=== PATIENT | female | born 1975 | race Caucasian/White ===

== ENCOUNTER 2023-05-29 09:42 | Outpatient (OUT) | payer OTHER, SELFPAY ==
--- NOTE | 2023-05-29 09:52 | XR_ITS ---
[address] [address] Patient Name: TY WOMACK MRN: [id number] date: 1975 Sex: F Assigned Patient Location: [facility] Current Patient Location: [facility] Accession/Order Number: [id number] Exam Date: 05/29/2023 09:55 Report Date: 05/29/2023 11:31 At the request of: ANDREIA OGLESBY Procedure: XR lumbar spine 2-3V EXAM: XR lumbar spine 2-3V HISTORY: Lumbar Radiculopathy M54.16 COMPARISON: None. TECHNIQUE: 2 views Findings/impression: Status post posterior fusion of L4-L5. Intact hardware. Maintained vertebral body heights. Multilevel endplate degenerative changes and disc disease of L3-S1. No acute fracture or subluxation. Unremarkable soft tissues. Electronically authenticated by: GREG PARKS Date: 05/29/2023 11:31
== END 2023-05-29 09:43 | disposition home or self-care (01) ==
LOC: RAD 09:47
PROVIDERS: PCP Family Medicine; Visit Provider Family Medicine
DX: M54.16 Radiculopathy, lumbar region (principal)
CPT/HCPCS: 72100

== ENCOUNTER 2023-10-10 13:55 | Emergency (ER) | payer OTHER, SELFPAY ==
[2023-10-10 14:04] VITALS: BP 170/101; PULSE 78; RESP 16; TEMP 36.7; O2SAT 99; BMI 25.1
--- NOTE | 2023-10-10 14:38 | ED.BACK1 ---
HPI - Back Pain/Injury General Chief Complaint: Back Pain/Injury Stated Complaint: BACK PAIN, LOWER EXTREMITY PAIN Time Seen by Provider: 10/10/23 14:37 Source: patient Mode of arrival: walk-in Limitations: no limitations History of Present Illness HPI Narrative: This patient is here with continued pain in her right low back area. She fell about 3 weeks ago down some stairs. She seen her doctor twice and had medications administered in the office. She had back surgery by Dr. Judd 15 years ago and had been doing pretty good. She states that it radiates down from her right lumbosacral area down the back of her leg into her lower leg. She does not have a foot drop which she has experienced in the past. She does not have any bowel or bladder incontinence. Related Data Home Medications ?Medication ?Instructions ?Recorded ?Confirmed meloxicam 15 mg tablet 15 mg PO DAILY 10/10/23 10/10/23 Allergies Allergy/AdvReac Type Severity Reaction Status Date / Time No Known Drug Allergies Allergy Verified 10/10/23 14:09 Exam Narrative Exam Narrative: This very pleasant female moves about with some hesitation but does not appear to be in excruciating pain. In a sitting position or deep tendon reflexes were checked and confirmed. Her patellar reflexes are strong and equal bilaterally, Achilles jerk is strong and equal bilaterally. Extensor houses longus function is normal. She has a negative straight leg raising test but she does have discomfort on the right side. She has normal toe walking with no evidence of foot drop or muscle weakness. She has normal neurovascular examination to that right lower extremity. There is no bruises or contusions. Large surgical incision from her previous back surgery as noted appears unremarkable. Constitutional Vital Signs, click to edit/add: Last Vital Signs Temp 98.1 F 10/10/23 14:04 Pulse 78 10/10/23 14:04 Resp 16 10/10/23 14:04 BP 170/101 H 10/10/23 14:04 Pulse Ox 99 10/10/23 14:04 O2 Del Method Room Air 10/10/23 14:04 Course Vital Signs Vital signs: Vital Signs Temperature 98.1 F 10/10/23 14:04 Pulse Rate 78 10/10/23 14:04 Respiratory Rate 16 10/10/23 14:04 Blood Pressure 170/101 H 10/10/23 14:04 Pulse Oximetry 99 10/10/23 14:04 Oxygen Delivery Method Room Air 10/10/23 14:04 Temperature 98.1 F 10/10/23 14:04 Pulse Rate 78 10/10/23 14:04 Respiratory Rate 16 10/10/23 14:04 Blood Pressure 170/101 H 10/10/23 14:04 Pulse Oximetry 99 10/10/23 14:04 Oxygen Delivery Method Room Air 10/10/23 14:04 MDM - Back Pain/Injury MDM Narrative Medical decision making narrative: Since this patient had a traumatic fall I felt a CT scan could rule out any type of vertebral compression or other bony abnormality. Her examination is normal. Fortunately her CT scan does not show any bony fracture. Chronic changes are noted in the body of the report. She will be given a limited dose of analgesics. She probably should try some muscle relaxants and NSAIDs as advised by her primary care doctor. Discharge Plan Discharge Stand Alone Forms: Portal Instructions Chief Complaint: Back Pain/Injury Clinical Impression: Lumbar contusion Patient Disposition: Home, Self-Care Time of Disposition Decision: 16:24 Prescriptions / Home Meds: No Action meloxicam 15 mg tablet 15 mg PO DAILY Print Language: Tuvaluan Additional Instructions: May use [place] at nighttime try course of steroids as discussed Referrals: Sukumar Hayes MD [Primary Care Provider] - 1 week
--- NOTE | 2023-10-10 14:45 | CT_ITS ---
The [address] [address] Patient Name: TY WOMACK MRN: [id number] date: 1975 Sex: F Assigned Patient Location: ER Current Patient Location: ER Accession/Order Number: [id number] Exam Date: 10/10/2023 15:42 Report Date: 10/10/2023 16:06 At the request of: LANE OBRIEN Procedure: CT lumbar spine wo con EXAM: CT lumbar spine wo con HISTORY: Fall COMPARISON: None. TECHNIQUE: FINDINGS: The lung bases, left intradural structures and paraspinous soft tissues are normal. The alignment is normal. The patient is status post left laminectomy and posterior interbody fusion at L4-L5. The hardware is intact. No acute fracture. Discogenic endplate marrow change at L5-S1 L2-L3: No central or foraminal stenosis L3-L4: No central or foraminal stenosis at L4-L5: No central or foraminal stenosis present at the L5-S1: Annular disc bulge producing mild bilateral foraminal stenosis. CT/CT lumbar spine wo con IMPRESSION: 1. No acute fracture of the lumbar spine Electronically authenticated by: CHRIS CHI Date: 10/10/2023 16:06
--- OUTSIDE RECORDS SUMMARY | 2023-10-17 08:57 | XMS_ITS | CCD ---
Author Organization [facility] Care Team Providers Care Automobile Mechanic Motor Name Role Phone MARKER, DR KINGSTON Attending Unavailable HOY, DR BOSWELL Primary Care Unavailable MARKER, DR KINGSTON Admitting Unavailable MARKER, DR KINGSTON Consulting Unavailable HOY, DR BOSWELL Primary Care Unavailable REQUEST, DR ORR LISTED Admitting Unavaila ble REQUEST, DR ORR LISTED Consulting Unavaila ble REQUEST, NONE LISTED Attending Unavaila ble Problems Problem Classification Problem Date Documented Da te Episodic/Chronic Disorders of teeth and jaw (6 sources) Other specified disorders of teeth and supporting structures; Translations: [Periapical abscess without sinus] Onset: 06-22-2021 Episodic Fever of unknown origin (1 source) Fever, unspecified; Translations: [FEVER UNSPECIFIED] Onset: 06-24-2021 Episodic Encounters Encounter Date Encounter Type Care Provider Facility Start: 06-22-2021 End: 06-23-[address] THEE MILLER Facility:[facility] Start: 10-04-2020 End: 10-04-[address] ANDREIA OGLESBY Facility:[facility] Payers Date Payer Category Payer Unknown [id number] .[id number] 1959 Private Health Insurance [id number] 1959 Self-pay Unknown [id number] .[id number] Summary Purpose Family History No Family History Records Found Advance Directives No Advanced Directives Records Found Additional Source Comments INFORMATION SOURCE (unrecogn ized section and content) DATE CREATED AUTHOR 06/25/2021 Susan marquez FOR RECORDS PERTAINING TO PATIENTS WHO ARE OR HAVE BEEN ENROLLED IN A CHEMICAL DEPENDENCY/SUBSTANCEABUSE PROGRAM, SOME INFORMATION MAY BE OMITTED. This clinical summary was aggregated from multiple sources. Caution should be exercised in using it in the provision of clinical care. This summary normalizes information from multiple sources, and as a consequence, information in this document may materially change the coding, format and clinical context of patient data. In addition, data may be omitted in some cases. CLINICAL DECISIONS SHOULD BE BASED ON THE PRIMARY CLINICAL RECORDS. [employer] [facility]. provides no warranty or guarantee of the accuracy or completeness of information in this document.
== END 2023-10-10 16:36 | disposition home or self-care (01) ==
LOC: ER 10-17 08:36
PROVIDERS: Emergency Provider Emergency Medicine Emergency Medical Services; PCP Family Medicine
DX: S30.0XXA Contusion of lower back and pelvis, initial encounter (principal); W10.9XXA Fall (on) (from) unspecified stairs and steps, initial encounter
CPT/HCPCS: 72131; 99284

== ENCOUNTER 2023-10-22 07:20 | Outpatient (OUT) | payer OTHER, SELFPAY ==
--- OUTSIDE RECORDS SUMMARY | 2023-10-22 07:23 | XMS_ITS | CCD ---
Author Organization [facility] Care Team Providers Care Electrician Third Name Role Phone MARKER, DR KINGSTON Attending [...] Facility:[facility] Payers Date Payer Category Payer Unknown [id number] .[id number] 1959 Private Health Insurance [id number] 1959 Self-pay Unknown [id number] .[id number] Summary Purpose Family History No Family History [...] BE BASED ON THE PRIMARY CLINICAL RECORDS. [employer] [facility]. provides no warranty or guarantee of the accuracy or completeness of information in this document.
--- NOTE | 2023-10-22 07:24 | MR_ITS ---
The [address] [address] Patient Name: TY WOMACK MRN: [id number] date: 1975 Sex: F Assigned Patient Location: MRI Current Patient Location: MRI Accession/Order Number: [id number] Exam Date: 10/22/2023 07:40 Report Date: 10/22/2023 10:27 At the request of: ANDREIA OGLESBY Procedure: MR lumbar spine wo con EXAMINATION: MR lumbar spine wo con HISTORY: Lumbar Radiculopathy, M54.16 ; chronic low back pain, chronic right leg pain and weakness, COMPARISON: No relevant comparison available. TECHNIQUE: A variety of imaging planes and parameters were utilized for visualization of suspected pathology. FINDINGS: For the purposes of numbering, sagittal T2 image # 8 extends from the T11 vertebral body superiorly to the S2 level inferiorly. PARASPINAL AREA: Normal with no visible mass. BONES: Mechanical fusion L4-L5 via bilateral pedicle screws and rods. L4 left laminectomy. No bone fracture, lesion, or spondylolisthesis. CORD/CAUDA EQUINA: Within the proximal cauda equina posterior to L1 is an approximately 10 x 6 x 4 mm mixed soft tissue and fluid signal lesion displacing adjacent descending nerve roots. DISC LEVELS: 12-L1: No significant disc/facet abnormality, spinal stenosis, or foraminal stenosis. L1-L2: No significant disc/facet abnormality, spinal stenosis, or foraminal stenosis. L2-L3: No significant disc/facet abnormality, spinal stenosis, or foraminal stenosis. L3-L4: No significant disc/facet abnormality, spinal stenosis, or foraminal stenosis. L4-L5: Marked narrowing without appreciable disc bulging. No significant central canal or foraminal stenosis. L4 left laminectomy. Mechanical fusion L4-L5. L5-S1: Mild central canal and bilateral foramen narrowing. Mild diffuse disc bulging and mild disc at reduction. No significant facet arthropathy. MR/MR lumbar spine wo con IMPRESSION: 1. Nonspecific 10 x 6 x 4 mm lesion within the central canal posterior to L1 of uncertain etiology. MRI lumbar spine without and with IV contrast with thin sections through this level is recommended for further evaluation. While this displaces adjacent nerve roots, it does not cause significant mass effect within the central canal. 2. Mechanical fusion L4-L5 and L4 left laminectomy. No significant central canal or foraminal stenosis. 3. L5-S1 mild to moderate degenerative disc disease causing mild foraminal narrowing bilaterally. Electronically authenticated by: STEPHENIE DENG Date: 10/22/2023 10:27
== END 2023-10-22 07:21 | disposition home or self-care (01) ==
LOC: MRI 07:21
PROVIDERS: PCP Family Medicine; Visit Provider Family Medicine
DX: M54.16 Radiculopathy, lumbar region (principal); M51.36 Other intervertebral disc degeneration, lumbar region
CPT/HCPCS: 72148

== ENCOUNTER 2023-10-30 06:38 | Outpatient (OUT) | payer OTHER, SELFPAY ==
--- OUTSIDE RECORDS SUMMARY | 2023-10-30 06:40 | XMS_ITS | CCD ---
Author Organization [facility] Care Team Providers Care Director Cloud Transformation Name Role Phone MARKER, DR KINGSTON Attending [...] Facility:[facility] Payers Date Payer Category Payer Unknown [id number] .[id number] 1959 Private Health Insurance [id number] 1959 Self-pay Unknown [id number] .[id number] Summary Purpose Family History No Family History [...] BE BASED ON THE PRIMARY CLINICAL RECORDS. [employer] [facility]. provides no warranty or guarantee of the accuracy or completeness of information in this document.
--- NOTE | 2023-10-30 06:43 | MR_ITS ---
The [address] [address] Patient Name: TY WOMACK MRN: [id number] date: 1975 Sex: F Assigned Patient Location: MRI Current Patient Location: Accession/Order Number: [id number] Exam Date: 10/30/2023 06:50 Report Date: 10/31/2023 08:13 At the request of: ANDREIA OGLESBY Procedure: MR lumbar spine wo/w con MR lumbar spine wo/w con, 10/30/2023 6:50 AM EDT INDICATION: Complete Lesion Of Unspecified Level Of Lumbar Spinal Cord COMPARISON: Prior MRI of lumbar spine dated 10/22/2023 TECHNIQUE: Multiplanar, multisequential MRI images of lumbar spine were obtained without and with contrast. FINDINGS: For dictation purposes, the lowest complete disc space in the lumbar spine considered as L5-S1. There is status post bilateral fusion of L4-L5 and L5-S1 causing magnetic susceptibility artifact that decreases the sensitivity of this study. Please note that MRI is not sensitive for evaluation of the hardware. There is loss of normal physiologic lumbar lordosis. The vertebral height is preserved. The conus medullaris is at the level of L1. No signal abnormality within the visualized spinal cord is noted. 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 No neural foraminal narrowing or canal stenoses at the level of T12-L1 and L1-L2 is noted. At the level of L2-L3, there are disc bulge with mild bilateral neuroforaminal narrowing and mild canal stenosis. At the level of L3-4, there are disc bulge with mild left neuroforaminal narrowing and mild canal stenosis. At the level of L4-5, there are disc bulge with no neuroforaminal narrowing and no canal stenosis. There is status post left hemilaminectomy at this level. At the level of L5-S1, there are disc bulge with moderate bilateral neuroforaminal narrowing and mild canal stenosis. Bilateral S1 nerve roots are in close contact with the disc bulge in the lateral recesses. The paraspinal muscles are unremarkable. No other abnormal enhancing lesion is noted. MR/MR lumbar spine wo/w con IMPRESSION: Mild degenerative changes of lumbar spine in particular at L5-S1. 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 Electronically authenticated by: GERRI RICE Date: 10/31/2023 08:13
== END 2023-10-30 06:39 | disposition home or self-care (01) ==
LOC: MRI 06:38
PROVIDERS: PCP Family Medicine; Visit Provider Family Medicine
DX: S34.119A Complete lesion of unspecified level of lumbar spinal cord, initial encounter (principal)
CPT/HCPCS: 72158; A9575

== ENCOUNTER 2023-11-02 11:46 | Outpatient (OUT) | payer OTHER, SELFPAY ==
--- NOTE | 2023-11-02 | XR_ITS ---
The [place] [id number] Patient Name: TY WOMACK MRN: [id number] date: 1975 Sex: F Assigned Patient Location: Current Patient Location: Accession/Order Number: [id number] Exam Date: 11/02/2023 12:10 Report Date: 11/04/2023 05:30 At the request of: VIRGEN VELEZ Procedure: XR lumbar spine min 4V EXAMINATION: XR lumbar spine min 4V HISTORY: LUMBAR SPINE PAIN COMPARISON: CT lumbar spine 10/10/2023 FINDINGS: BONES: Posterior mechanical fusion L4-L5 via bilateral pedicle screws and rods; no appreciable hardware fracture or loosening. Normal height and alignment of vertebral bodies; no change during flexion and extension. Multilevel mild degenerative facet arthropathy. Mild right convex curvature of thoracolumbar spine. DISC SPACES: Moderate narrowing L4-L5, L5-S1. PARASPINOUS: Negative. No paraspinous abnormality is seen. OTHER: Negative. XR/XR lumbar spine min 4V IMPRESSION: 1. Stable surgical changes without evidence of hardware failure or change in alignment. 2. Moderate degenerative disc disease of lower lumbar spine; grossly stable. Electronically authenticated by: STEPHENIE DENG Date: 11/04/2023 05:30
== END 2023-11-02 11:47 | disposition home or self-care (01) ==
LOC: EC 11:46
PROVIDERS: PCP Family Medicine; Visit Provider Orthopaedic Surgery Orthopaedic Surgery of the Spine
DX: M54.50 Low back pain, unspecified (principal); M51.36 Other intervertebral disc degeneration, lumbar region
CPT/HCPCS: 72110

== ENCOUNTER 2023-11-14 11:03 | Outpatient (OUT) | payer OTHER, SELFPAY ==
--- NOTE | 2023-11-14 11:27 | P.CN_ITS ---
Consult Note: HPI Data of Consult Patient: new to practice Requesting Physician: Milady Stevenson NP Primary Care Provider: Sukumar Hayes MD Consult Narrative Reason for consult: chronic low back pain with right sided radiculopathy Narrative: Arin smith pleasant 48 year old female presents for evaluation and management of chronic low back pain with right sided radiculopathy. Hx of lumbar fusion at L4-5 and lumbar discectomy. Patient recently evaluated by Dr Humphrey and patient would like to try injection therapy prior to additional surgical intervention. Pain today 4/10 constant sharp burning in low back radiating into right leg and foot/toes. Pain increased with all activity, stairs, bending, twisting. no loss of bowel or bladder. Finds mild benefit to motrin, mobic, tramadol. engaged in HEP greater than 6 weeks without benefit. Recent lumbar xray and MRI below, consistent with stenosis and degnerative changes. cc:: CC: Milady Stevenson NP Review of Systems ROS Status of ROS 10 or more systems reviewed and unremark able except as noted in history and below Musculoskeletal Reports: back pain and extremity pain Meds Home Medications and Allergies Home Medications ?Medication ?Instructions ?Recorded ?Confirmed ?Type meloxicam 15 mg tablet 15 mg PO DAILY 10/10/23 10/10/23 History Allergies Allergy/AdvReac Type Severity Reaction Status Date / Time No Known Drug Allergies Allergy Verified 10/10/23 14:09 Exam Constitutional Documenting provider has reviewed patient's vital signs: yes Common normals: no apparent distress, oriented x3, healthy appearing, alert and well nourished General appearance: cooperative HENMT Common normals: normocephalic, hearing grossly normal bilaterally and moist oral mucous membranes Head and scalp: normocephalic Eye Common normals: PERRL Pupil: PERRL Neck & C-Spine Common normals: full ROM General: normal visual inspection Chest Common normals: inspection of chest normal Respiratory Common normals: normal respiratory effort, no retractions and no use of accessory muscles Back & Pelvis Lumbar spine/lower back: pain with ROM and straight leg raise positive right Sacroiliac joints: SI joint(s) abnormal (right positive ashlee, fadir, thigh thrust) Other: decreased sensation to right L5,S1 dermatomal pattern strength 4/5 in BLE neurogenic claudication in BLE with activity, stairs, ambulation Extremity Common normals: normal to inspection and full ROM Neuro Common normals: oriented x3, CN's II-XII intact bilaterally, moves all extremities, no focal motor deficits, no sensory deficits noted and deep tendon reflexes 2+ bilaterally Sensorium/orientation: alert Gait (neuro): antalgic Motor exam: no movement abnormalities noted and strength abnormal Psych Common normals: mental status grossly normal, thought process normal, cooperative, affect normal, speech normal and activity/motor behavior normal Speech: normal speech Thought process: normal thought process Results Imaging Lumbar MRI: Radiologist's impression: For dictation purposes, the lowest complete disc space in the lumbar spine considered as L5-S1. There is status post bilateral fusion of L4-L5 and L5-S1 causing magnetic susceptibility artifact that decreases the sensitivity of this study. Please note that MRI is not sensitive for evaluation of the hardware. There is loss of normal physiologic lumbar lordosis. The vertebral height is preserved. The conus medullaris is at the level of L1. No signal abnormality within the visualized spinal cord is noted. 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 No neural foraminal narrowing or canal stenoses at the level of T12-L1 and L1-L2 is noted. At the level of L2-L3, there are disc bulge with mild bilateral neuroforaminal narrowing and mild canal stenosis. At the level of L3-4, there are disc bulge with mild left neuroforaminal narrowing and mild canal stenosis. At the level of L4-5, there are disc bulge with no neuroforaminal narrowing and no canal stenosis. There is status post left hemilaminectomy at this level. At the level of L5-S1, there are disc bulge with moderate bilateral neuroforaminal narrowing and mild canal stenosis. Bilateral S1 nerve roots are in close contact with the disc bulge in the lateral recesses. The paraspinal muscles are unremarkable. No other abnormal enhancing lesion is noted. Lumbar xray: Radiologist's impression: BONES: Posterior mechanical fusion L4-L5 via bilateral pedicle screws and rods; no appreciable hardware fracture or loosening. Normal height and alignment of vertebral bodies; no change during flexion and extension. Multilevel mild degenerative facet arthropathy. Mild right convex curvature of thoracolumbar spine. DISC SPACES: Moderate narrowing L4-L5, L5-S1. PARASPINOUS: Negative. No paraspinous abnormality is seen. OTHER: Negative. Additional Findings Additional findings: If on a controlled substance or opioids, I have checked an [place] report on this patient and there are no aberrancies noted in the prescribing history.??If on a controlled substance or opioid a drug screen was completed and reviewed within the last year, and if there has not been a drug screen completed we ordered one today to monitor higher risk, state monitored pain medication use. As part of providing excellent, safe, comprehensive care, the following was completed at our patient's visit: 1. A medication reconciliation and review to ensure accurate knowledge of current/active medications, including asking our patients to inform us about any [id number] medications or herbal remedies/nutritional supplements/altern ative remedies. 2. A review to specifically ensure our patients have had annual screening for screening for depression, screening for tobacco use, and screening for unhealthy alcohol use. For concerning screenings had a discussion with the patient, provided patient education, and recommended follow-up with primary care provider when appropriate. If patient noted with a risk of falling, they received education on strength, gait, and balance training to prevent future risk of falling. Assessment and Plan Assessment and Plan (1) Lumbar stenosis with neurogenic claudication: (2) Sacroiliitis: (3) S/P lumbar fusion: Plan The patient has had over 3 months of moderate to severe low back, right leg, and right SIJ pain with functional impairment and inadequate response to conservative care including NSAIDS (unless there are contraindication such as concurrent blood thinners), multiple oral or topical pain medications, and home exercise program/physical therapy.? Patient has completed >6 weeks of guided home exercise program and/or formal physical therapy program without relief of their symptoms.? I have reviewed the imaging of the lumbosacral spine and no red flags were identified.? The imaging reveals radiographic findings consistent with lumbar stenosis. We discussed the risks and benefits of the procedure with the patient, and we are NOT planning on using sedation as outlined in the guidelines from Medicare unless there is a documented reason that sedation would be strongly rec ommended.?? The procedure will be completed with fluoroscopic guidance.? bilateral L5-S1 TFESI under fluoroscopy right SIJ injection continue HEP as tolerated continue medications as tolerated f/u 2 weeks after completion of injections
== END 2023-11-14 11:04 | disposition home or self-care (01) ==
PROVIDERS: PCP Family Medicine; Visit Provider Nurse Practitioner
DX: M48.062 Spinal stenosis, lumbar region with neurogenic claudication (principal); M46.1 Sacroiliitis, not elsewhere classified; Z98.890 Other specified postprocedural states
CPT/HCPCS: G0463

== ENCOUNTER 2023-12-03 09:03 | Day surgery (SDC) | payer OTHER, SELFPAY ==
[2023-12-03 09:40] VITALS: BP 149/96; PULSE 70; TEMP 36.3; O2SAT 100
[2023-12-03 10:01] VITALS: BP 153/90; BP 170/94; PULSE 66; PULSE 70; O2SAT 98
[2023-12-03] MEDS: 0.9 % SODIUM CHLORIDE 10 ML SYRINGE - SALINE FLUSH INJ (10:03)
--- NOTE | 2023-12-03 10:03 | W.PM.PROCNOT ---
Date of procedure: 12/03/23 Pre-op diagnosis: Lumbar stenosis with neurogenic claudication Post-op diagnosis: same as pre-op Procedure: Procedure: Bilateral L5-S1 transforaminal epidural steroid injection Medications: Bupivacaine 0.25% 2cc, lidocaine 2% 1cc, kenalog 80mg The patient was seen and examined in the preoperative holding area.? Informed consent was obtained and placed on the chart.? Patient was brought to the medical procedure unit and placed in the prone position where a timeout was completed verifying the correct patient, procedure site, position, and planned special equipment using sterile aseptic technique.? Under direct fluoroscopic visualization a 25-gauge Quincke tipped spinal needle was advanced at level left L5-S1 to the designated neural foramen where contrast dye was injected to show adequate spread.? There was no evidence of vascular or adverse uptake.? Epidural spread was appreciated.? The above-mentioned injectate was then placed in a 1.5 mL aliquot preceded by negative aspiration.? The needle was removed. The same procedure, at the same level, was completed on the opposite side. ? Patient was taken to the postprocedural recovery area and monitored for an appropriate length of time before found suitable for discharge in the accompaniment of a responsible adult. Anesthesia: Local Surgeon: Marcos Huffman Pathology: none sent Condition: stable Disposition: no change
[2023-12-03] MEDS: LIDOCAINE HCL 2% PF 100 MG/5 ML VIAL 2.5 ML INJ (10:04)
[2023-12-03] MEDS: IOHEXOL 240 MG/ML - 10 ML VIAL 12 MG INJ (10:04)
[2023-12-03] MEDS: TRIAMCINOLONE ACETONIDE 40 MG/ML VIAL 80 MG INJ (10:04)
[2023-12-03] MEDS: BUPIVACAINE HCL 0.25% PF 25 MG/10 ML VIAL INJ (10:04)
--- NOTE | 2023-12-03 11:10 | PC.NURSE ---
Upon arrival to PACU pt reported weakness to left leg, pt was unable to ambulate without assistance. She was placed in a wheelchair. Pt was observed and after 2 attempts at standing with assistance pt was able to ambulate without assistance.
== END 2023-12-03 11:07 | disposition home or self-care (01) ==
PROVIDERS: PCP Family Medicine; Visit Provider Anesthesiology
DX: M48.062 Spinal stenosis, lumbar region with neurogenic claudication (principal)
CPT/HCPCS: 64483; Q9966

== ENCOUNTER 2023-12-13 13:06 | Outpatient (OUT) | payer OTHER, SELFPAY ==
--- NOTE | 2023-12-13 13:26 | P.CN_ITS ---
Consult Note: HPI Data of Consult Patient: known to practice within the last 3 years Requesting Physician: Milady Stevenson NP Primary Care Provider: Sukumar Hayes MD Consult Narrative Reason for consult: chronic low back pain with right sided radiculopathy Narrative: Arin Montenegro a pleasant 48 year old female presents for evaluation and man agement of chronic low back pain with right sided radiculopathy. Hx of lumbar fusion at L4-5 and lumbar discectomy. Patient recently evaluated by Dr Humphrey and patient would like to try injection therapy prior to additional surgical intervention. Pain today 4/10 constant sharp burning in low back radiating into right leg and foot/toes. Pain increased with all activity, stairs, bending, twisting. no loss of bowel or bladder. Finds mild benefit to motrin, mobic, tramadol. engaged in HEP greater than 6 weeks without benefit. Recent lumbar xray and MRI below, consistent with stenosis and degnerative changes. Recent bilateral L5-S1 TFESI providing significant improvement in radicular pain. Pain today 0/10. Pain increasing in right SIJ to 6/10. cc:: CC: Milady Stevenson NP Review of Systems ROS Status of ROS 10 or more systems reviewed and unremark able except as noted in history and below Musculoskeletal Reports: joint pain PFSH PFSH Medical History (Updated 11/27/23 @ 10:12 by Chantelle Jamil) Low back pain ?M54.50 - Low back pain, unspecified (ICD-10) Surgical History History of lumbar fusion ?Z98.1 - Arthrodesis status (ICD-10) H/O lumbar discectomy ?Z98.890 - Other specified postprocedural states (ICD-10) Meds Home Medications and Allergies Home Medications ?Medication ?Instructions ?Recorded ?Confirmed ?Type meloxicam 15 mg tablet 15 mg PO DAILY 10/10/23 12/03/23 History Allergies Allergy/AdvReac Type Severity Reaction Status Date / Time No Known Drug Allergies Allergy Verified 12/03/23 09:35 Exam Constitutional Documenting provider has reviewed patient's vital signs: yes Common normals: no apparent distress, oriented x3, healthy appearing, alert and well nourished General appearance: cooperative HENMT Common normals: normocephalic, hearing grossly normal bilaterally and moist oral mucous membranes Head and scalp: normocephalic Eye Common normals: PERRL Pupil: PERRL Neck & C-Spine Common normals: full ROM General: normal visual inspection Chest Common normals: inspection of chest normal Respiratory Common normals: normal respiratory effort, no retractions and no use of accessory muscles Back & Pelvis Lumbar spine/lower back: normal to inspection, pain with ROM and straight leg ra ise negative bilaterally Sacroiliac joints: SI joint(s) abnormal Other: strength 5/5 in BLE sensation intact BLE right positive ashlee(patricks), gaenslens, thigh thrust, compression test neurogenic claudication in BLE with activity, stairs, ambulation Extremity Common normals: normal to inspection and full ROM Neuro Common normals: oriented x3, CN's II-XII intact bilaterally, moves all extremities, no focal motor deficits, no sensory deficits noted and deep tendon reflexes 2+ bilaterally Sensorium/orientation: alert Gait (neuro): antalgic Motor exam: strength 5/5 throughout and no movement abnormalities noted Psych Common normals: mental status grossly normal, thought process normal, cooperative, affect normal, speech normal and activity/motor behavior normal Speech: normal speech Thought process: normal thought process Results Additional Findings Additional findings: If on a controlled substance or opioids, I have checked an OARRS report on this patient and there are no aberrancies noted in the prescribing history.??If on a controlled substance or opioid a drug screen was completed and reviewed within the last year, and if there has not been a drug screen completed we ordered one today to monitor higher risk, state monitored pain medication use. As part of providing excellent, safe, comprehensive care, the following was completed at our patient's visit: 1. A medication reconciliation and review to ensure accurate knowledge of current/active medications, including asking our patients to inform us about any pfwg-uqg-roeyxng medications or herbal remedies/nutritional supplements/alternative remedies. 2. A review to specifically ensure our patients have had annual screening for screening for depression, screening for tobacco use, and screening for unhealthy alcohol use. For concerning screenings had a discussion with the patient, provided patient education, and recommended follow-up with primary care provider when appropriate. If patient noted with a risk of falling, they received education on strength, gait, and balance training to prevent future risk of falling. Assessment and Plan Assessment and Plan (1) Sacroiliitis: (2) S/P lumbar fusion: (3) Lumbar stenosis with neurogenic claudication: Plan right SIJ injection under fluoroscopy limit NSAIDs, elevated asymptomatic HTN. will f/u with pcp f/u 2 weeks after SIJ injection
== END 2023-12-13 13:07 | disposition home or self-care (01) ==
LOC: PM 13:06
PROVIDERS: PCP Family Medicine; Visit Provider Nurse Practitioner
DX: M46 Other inflammatory spondylopathies (principal); M43.27 Fusion of spine, lumbosacral region; M48.062 Spinal stenosis, lumbar region with neurogenic claudication
CPT/HCPCS: G0463

== ENCOUNTER 2024-02-04 09:25 | Day surgery (SDC) | payer OTHER, SELFPAY ==
--- OUTSIDE RECORDS SUMMARY | 2024-02-04 09:46 | XMS_ITS | CCD ---
Author Organization [facility] Care Team Providers Care Client Director Name Role Phone MARKER, DR KINGSTON Attending Unavailable HOY, DR BOSWELL Primary Care Unavailable MARKER, DR KINGSTON Admitting Unavailable MARKER, DR KINGSTON Consulting Unavailable HOY, DR BOSWELL Primary Care Unavailable REQUEST, DR ORR LISTED Admitting Unavaila ble REQUEST, DR ORR LISTED Consulting Unavaila ble REQUEST, DR ORR LISTED Attending Unavaila ble Nathanael ROCK, Marcos Sanchez Attending Unavailable Problems Problem Classification Problem Date Documented Da te Episodic/Chronic Disorders of teeth and jaw (6 sources) Other specified disorders of teeth and supporting structures; Translations: [Periapical abscess without sinus] Onset: 06-22-2021 Episodic Fever of unknown origin (1 source) Fever, unspecified; Translations: [FEVER UNSPECIFIED] Onset: 06-24-2021 Episodic Encounters Encounter Date Encounter Type Care Provider Facility Start: 12-03-2023 End: 12-04-2023 ambulatory [facility] Start: 06-22-2021 End: 06-23-[address] THEE MILLER Facility: Start: 10-04-2020 End: 10-04-[address] ANDREIA OGLESBY Facility:[facility] Payers Date Payer Category Payer Private Health Insurance 1975 Unknown [id number] 08.31.83 [id number] 1975 Unknown [id number] 1959 Private Health Insurance [id number] 1959 Self-pay Unknown [id number] 08.31.83 [id number] Summary Purpose Family History No Family History Records FoundNo Family History Records Found Advance Directives No Advanced Directives Records FoundNo Advanced Directives Records Found Additional Source Comments INFORMATION SOURCE (unrecogn ized section and content) DATE CREATED AUTHOR 06/25/2021 [facility] DATE CREATED AUTHOR AUTHOR'Haley CARVAJAL 12/09/2023 [facility] FOR RECORDS PERTAINING TO PATIENTS WHO ARE [...] BE BASED ON THE PRIMARY CLINICAL RECORDS. [employer] [facility]. provides no warranty or guarantee of the accuracy or completeness of information in this document.
[2024-02-04 10:17] VITALS: BP 155/97; PULSE 79; TEMP 36.3; O2SAT 100
[2024-02-04 10:51] VITALS: BP 148/95; BP 164/79; PULSE 73; PULSE 76; O2SAT 100; O2SAT 98
--- NOTE | 2024-02-04 10:52 | W.PM.PROCNOT ---
Date of procedure: 02/04/24 Pre-op diagnosis: Pain due to right sacroiliiitis Post-op diagnosis: same as pre-op Procedure: Procedure: Right sacroiliac joint injection Medications: Bupivacaine 0.25% 3cc, kenalog 40mg PROCEDURE: After informed consent was obtained, the patient brought to the OR and placed in the prone position. The skin overlying the area was prepped and draped in sterile fashion ?using alcohol, after which a 25 gauge needle was used to access the nerve innervating the right sacroiliac joint under fluoroscopic guidance. Omnipaque contrast dye was injected to show absence of vascular or spinal canal uptake. After encountering the same we instilled 4 mL of solution. ?Postoperatively, needles were removed. The patient tolerated the procedure well and was ?transferred to recovery area in stable condition, to be discharged home after meeting ?criteria. Follow up as per the treatment plan. Anesthesia: Local Surgeon: Marcos Huffman Pathology: none sent Condition: stable Disposition: no change
[2024-02-04] MEDS: TRIAMCINOLONE ACETONIDE 40 MG/ML VIAL INJ (10:53)
[2024-02-04] MEDS: IOHEXOL 240 MG/ML - 10 ML VIAL 24 MG INJ (10:53)
[2024-02-04] MEDS: BUPIVACAINE HCL 0.25% PF 25 MG/10 ML VIAL 2 ML INJ (10:53)
[2024-02-04] MEDS: LIDOCAINE HCL 2% 400 MG/20 ML MDV INJ (10:53)
== END 2024-02-04 10:55 | disposition home or self-care (01) ==
PROVIDERS: PCP Family Medicine; Visit Provider Anesthesiology
DX: M46.1 Sacroiliitis, not elsewhere classified (principal); R52 Pain, unspecified
CPT/HCPCS: 27096; J0665; J3301; Q9966

== ENCOUNTER 2024-02-07 13:18 | Outpatient (OUT) | payer OTHER, SELFPAY ==
--- OUTSIDE RECORDS SUMMARY | 2024-02-07 13:22 | XMS_ITS | CCD ---
Author Organization [facility] Care Team Providers Care Pole Shaver Helper Name Role Phone MARKER, DR KINGSTON Attending [...] End: 12-04-2023 ambulatory [facility] Start: 06-22-2021 End: 06-23-[address] THEE MILLER Facility: Start: 10-04-2020 End: 10-04-[address] ANDREIA OGLESBY Facility:[facility] Payers Date Payer Category Payer Private Health Insurance 1975 Unknown [id number] 08.31.83 [id number] 1975 Unknown [id number] 1959 Private Health Insurance [id number] 1959 Self-pay Unknown [id number] 08.31.83 [id number] Summary Purpose Family History No Family History Records FoundNo Family History Records Found Advance Directives No Advanced Directives Records FoundNo Advanced Directives Records Found Additional Source Comments INFORMATION SOURCE (unrecogn ized section and content) DATE CREATED AUTHOR 06/25/2021 [facility] DATE CREATED AUTHOR AUTHOR'Haley CARVAJAL 12/09/2023 [facility] FOR RECORDS PERTAINING TO PATIENTS [...] BE BASED ON THE PRIMARY CLINICAL RECORDS. [employer] [facility]. provides no warranty or guarantee of the accuracy or completeness of information in this document.
--- NOTE | 2024-02-07 13:46 | P.CN_ITS ---
Consult Note: HPI Data of Consult Patient: known to practice within the last 3 years Requesting Physician: Milady Stevenson NP Primary Care Provider: Sukumar Hayes MD Consult Narrative Reason for consult: chronic low back pain with right sided radiculopathy Narrative: Arin Montenegro a pleasant 48 year old female presents for evaluation and man agement of chronic low back pain with right sided radiculopathy. Hx of lumbar fusion at L4-5 and lumbar discectomy. Patient recently evaluated by Dr Humphrey and patient would like to try injection therapy prior to additional surgical intervention. Previously found mild benefit to motrin, mobic, tramadol. engaged in HEP greater than 6 weeks without benefit. Recent lumbar xray and MRI below, consistent with stenosis and degnerative changes. Recent bilateral L5-S1 TFESI providing significant improvement in radicular pain, and right SIJ injection providing 100% improvement ongoing. pain 0/10, has stopped tylenol and mobic. cc:: CC: Milady Stevenson NP Review of Systems ROS Status of ROS 10 or more systems reviewed and unremark able except as noted in history and below [facility] Medical History (Updated 11/27/23 @ 10:12 by Chantelle Jamil) Low back pain ?M54.50 - Low back pain, unspecified (ICD-10) Surgical History History of lumbar fusion ?Z98.1 - Arthrodesis status (ICD-10) H/O lumbar discectomy ?Z98.890 - Other specified postprocedural states (ICD-10) Meds Home Medications and Allergies Home Medications ?Medication ?Instructions ?Recorded ?Confirmed ?Type meloxicam 15 mg tablet 15 mg PO DAILY 10/10/23 02/04/24 History Allergies Allergy/AdvReac Type Severity Reaction Status Date / Time No Known Drug Allergies Allergy Verified 02/04/24 10:16 Exam Constitutional Documenting provider has reviewed patient's vital signs: yes Common normals: no apparent distress, oriented x3, healthy appearing, alert and well nourished General appearance: cooperative [facility] Common normals: normocephalic, hearing grossly normal bilaterally and moist oral mucous membranes Head and scalp: normocephalic Eye Common normals: PERRL Pupil: PERRL Neck & C-Spine Common normals: full ROM General: normal visual inspection Chest Common normals: inspection of chest normal Respiratory Common normals: normal respiratory effort, no retractions and no use of accessory muscles Back & Pelvis Lumbar spine/lower back: normal to inspection, lumbar ROM normal and straight leg raise negative bilaterally Sacroiliac joints: SI joints normal Other: strength 5/5 in BLE sensation intact BLE right SIJ negative ashlee(patricks), gaenslens, thigh thrust, compression test Extremity Common normals: normal to inspection and full ROM Neuro Common normals: oriented x3, CN's II-XII intact bilaterally, moves all extremities, no focal motor deficits, no sensory deficits noted and deep tendon reflexes 2+ bilaterally Sensorium/orientation: alert Gait (neuro): antalgic Motor exam: strength 5/5 throughout and no movement abnormalities noted Psych Common normals: mental status grossly normal, thought process normal, cooperative, affect normal, speech normal and activity/motor behavior normal Speech: normal speech Thought process: normal thought process Results Additional Findings Additional findings: If on a controlled substance or opioids, I have checked an OARRS report on this patient and there are no aberrancies noted in the prescribing history.??If on a controlled substance or opioid a drug screen was completed and reviewed within the last year, and if there has not been a drug screen completed we ordered one today to monitor higher risk, state monitored pain medication use. As part of providing excellent, safe, comprehensive care, the following was completed at our patient's visit: 1. A medication reconciliation and review to ensure accurate knowledge of current/active medications, including asking our patients to inform us about any xzhq-dfk-eyzjqvk medications or herbal remedies/nutritional supplements/alternative remedies. 2. A review to specifically ensure our patients have had annual screening for screening for depression, screening for tobacco use, and screening for unhealthy alcohol use. For concerning screenings had a discussion with the patient, provided patient education, and recommended follow-up with primary care provider when appropriate. If patient noted with a risk of falling, they received educa tion on strength, gait, and balance training to prevent future risk of falling. Assessment and Plan Assessment and Plan (1) Sacroiliitis: (2) S/P lumbar fusion: (3) Lumbar stenosis with neurogenic claudication: Plan significant ongoing improvement from lumbar ESIs and right SIJ injection avoid/limit NSAIDs, elevated asymptomatic HTN. will f/u with pcp f/u as needed
== END 2024-02-07 13:19 | disposition home or self-care (01) ==
LOC: PM 13:18
PROVIDERS: PCP Family Medicine; Visit Provider Nurse Practitioner
DX: M46.1 Sacroiliitis, not elsewhere classified (principal); Z98.1 Arthrodesis status; M48.062 Spinal stenosis, lumbar region with neurogenic claudication
CPT/HCPCS: G0463

== ENCOUNTER 2024-02-16 08:04 | Outpatient (OUT) | payer OTHER, SELFPAY ==
--- OUTSIDE RECORDS SUMMARY | 2024-02-16 08:08 | XMS_ITS | CCD ---
Author Organization [facility] Care Team Providers Care Hotel Or Motel Manager Name Role Phone MARKER, DR KINGSTON Attending Unavailable HOY, DR BOSWELL Primary Care Unavailable MARKER, DR KINGSTON Admitting Unavailable MARKER, DR KINGSTON Consulting Unavailable HOY, DR BOSWELL Primary Care Unavailable REQUEST, DR ORR LISTED Admitting Unavaila ble REQUEST, DR ORR LISTED Consulting Unavaila ble REQUEST, DR ORR LISTED Attending Unavaila ble Nathanael ROCK, Marcos Sanchez Attending Unavailable Nathanael ROCK, Marcos Sanchez Attending Unavailable Problems Problem Classification Problem Date Documented Da te Episodic/Chronic Disorders of teeth and jaw (6 sources) Other specified disorders of teeth and supporting structures; Translations: [Periapical abscess without sinus] Onset: 06-22-2021 Episodic Fever of unknown origin (1 source) Fever, unspecified; Translations: [FEVER UNSPECIFIED] Onset: 06-24-2021 Episodic Encounters Encounter Date Encounter Type Care Provider Facility Start: 02-04-2024 End: 02-04-2024 ambulatory Marcos Huffman MD [facility] Start: 12-03-2023 End: 12-03-2023 ambulatory Marcos Huffman MD [facility]: [facility] Start: 06-22-2021 End: 06-23-[address] THEE MILLER Facility:[facility] Start: 10-04-2020 End: 10-04-[address] ANDREIA OGLESBY Facility:[facility] Payers Date Payer Category Payer Private Health Insurance 1975 Unknown [id number] 2.16.84 [id number] 1975 Unknown [id number] [id number]. [id number] 1975 Unknown [id number] [id number]. [id number] 1959 Private Health Insurance W26 [id number] 1959 Self-pay Unknown [id number] 2.16.84 [id number] Summary Purpose Family History No Family History Records FoundNo Family History Records Found Advance Directives No Advanced Directives Records FoundNo Advanced Directives Records Found Additional Source Comments INFORMATION SOURCE (unrecogn ized section and content) DATE CREATED AUTHOR 06/25/2021 [facility] DATE CREATED AUTHOR AUTHOR'S ORGANIZ ATION 02/09/2024 [facility] FOR RECORDS PERTAINING TO PATIENTS WHO ARE [...] BE BASED ON THE PRIMARY CLINICAL RECORDS. [employer] [facility]. provides no warranty or guarantee of the accuracy or completeness of information in this document.
[2024-02-16 09:44] LABS: Basophils Absolute Auto 0.1 10^3/uL (0.0-0.1); Basophils Percent Auto 0.4 % (0.2-2.0); Eosinophils Absolute Auto 0.1 10^3/uL (0.0-0.7); Hematocrit 44.2 % (36.0-48.0); Hemoglobin 14.5 g/dL (12.0-16.0); Immature Granulocytes Pct Auto 0.7 % (0.0-0.5); Lymphocytes Percent Auto 21.7 % (20.5-60.0); Mean Corpuscular HGB Conc 32.8 g/dL (29.9-35.2); Mean Corpuscular Hemoglobin 31.2 pg (26.7-34.0); Mean Corpuscular Volume 95.1 fL (81.0-99.0); Mean Platelet Volume 10.7 fL (9.5-13.5); Monocytes Absolute Auto 1.3 10^3/uL (0.3-0.8); Monocytes Percent Auto 9.4 % (1.7-12.0); Neutrophils Absolute Auto 9.1 10^3/uL (1.4-6.5); Neutrophils Percent Auto 66.8 % (43.0-75.0); Platelet Count 282 10^3/uL (150-450); Red Blood Count 4.65 10^6/uL (4.20-5.40); Red Cell Distribution Width 13.2 % (11.0-15.0); White Blood Count 13.6 10^3/uL (4.0-11.0)
[2024-02-16 11:10] LABS: Anion Gap 11.9; Carbon Dioxide 31.1 mmol/L (21.0-32.0); Chloride 104 mmol/L (98-107); Glucose 90 mg/dL (74-106); Sodium 143 mmol/L (136-145)
[2024-02-16 11:11] LABS: Alanine Aminotransferase 24 U/L (14-59); Albumin Globulin Ratio 1.1; Albumin Level 3.9 g/dL (3.4-5.0); Alkaline Phosphatase 61 U/L (46-116); Aspartate Amino Transferase 13 U/L (15-37); BUN Creatinine Ratio 9.3; Bilirubin Total 0.8 mg/dL (0.2-1.0); Calcium 9.8 mg/dL (8.5-10.1); Estimated GFR (African America >60 (>=60); Estimated GFR (Non-African Ame >60 (>=60); Globulin 3.4 g/dL; Total Protein 7.3 g/dL (6.4-8.2); Triglycerides 180 mg/dL (<=150)
[2024-02-16 11:12] LABS: Chol HDL Ratio 3.5; Cholesterol 246 mg/dL (<=200); HDL Cholesterol 71 mg/dL (40-60); Thyroid Stimulating Hormone 1.265 uIU/mL (0.358-3.740)
[2024-02-16 11:38] LABS: Free T4 0.97 ng/dL (0.76-1.46)
[2024-02-16 18:30] LABS: Estimated Average Glucose 103 mg/dL; Glycohemoglobin A1C 5.2 % (4.5-6.2)
== END 2024-02-16 08:05 | disposition home or self-care (01) ==
LOC: LAB 08:07
PROVIDERS: PCP Family Medicine; Visit Provider Family Medicine
DX: Z00.00 Encounter for general adult medical examination without abnormal findings (principal)
CPT/HCPCS: 36415; 80053; 80061; 83036; 84439; 84443; 85025

== ENCOUNTER 2024-02-20 13:57 | Outpatient (OUT) | payer OTHER, SELFPAY ==
--- NOTE | 2024-02-20 13:59 | MM_ITS ---
Patient Name: TY WOMACK MR#: [id number] : 1975 Exam Date: 02/20/2024 Ordering Doctor: DR Sukumar Hayes . RADIOLOGY REPORT PROCEDURE: MM TOMOSYNTHESIS SCREENING BI COMPARISON: MG MAMM DELILAH SCRN W CAD DIG, 05/18/2015. INDICATIONS: Screening Calculator Name NCI Breast Cancer Risk Assessment Tool 5 Year Breast Cancer Risk 1.60% Lifetime Breast Cancer Risk 15.50% Personal Breast Cancer No Personal Ovarian Cancer No Treatments None Family Cancers Sister with breast cancer at age 45; Sister with cervical cancer at age 45. LOCATION: [facility] BREAST COMPOSITION: There are scattered areas of fibroglandular density. FINDINGS: DIAGNOSTIC CATEGORY 2--BENIGN FINDING. NO CHANGE FROM COMPARISON. Scattered benign-appearing lymph nodes are present. RIGHT BREAST: No significant suspicious finding. LEFT BREAST: No significant suspicious finding. RECOMMENDATIONS: ROUTINE MAMMOGRAM AND CLINICAL EVALUATION IN 12 MONTHS. PLEASE NOTE: A NORMAL MAMMOGRAM DOES NOT EXCLUDE THE POSSIBILITY OF BREAST CANCER. A CLINICALLY SUSPICIOUS PALPABLE LUMP SHOULD BE BIOPSIED. Dictated by: Shaggy Nicholson MD on 02/21/2024 at 07:42 Approved by: Shaggy Nicholson MD on 02/21/2024 at 07:43
--- OUTSIDE RECORDS SUMMARY | 2024-02-20 14:17 | XMS_ITS | CCD ---
Author Organization [facility] Care Team Providers Care Associate Financial Representative Name Role Phone MARKER, DR KINGSTON Attending Unavailable HOY, DR BOSWELL Primary Care Unavailable MARKER, DR KINGSTON Admitting Unavailable MARKER, DR KINGSTON Consulting Unavailable HOY, DR BOSWELL Primary Care Unavailable REQUEST, DR ORR LISTED Admitting Unavaila ble REQUEST, DR ROR LISTED Consulting Unavaila ble REQUEST, DR ORR [...] Category Payer Private Health Insurance 1975 Unknown [id number] 2.16.84 [id number] 1975 Unknown [id number] [id number]. [id number] 1975 Unknown [id number] 2.16. [id number] 1959 Private Health Insurance [id number] 1959 Self-pay Unknown [id number] 2.16.84 [id number] Summary Purpose Family History No Family History Records FoundNo Family History Records Found Advance Directives No Advanced Directives Records FoundNo Advanced Directives Records Found Additional Source Comments INFORMATION SOURCE (unrecogn ized section and content) DATE CREATED AUTHOR 06/25/2021 [facility] DATE CREATED AUTHOR AUTHOR'S ORGANIZ ATION 02/09/2024 [facility] FOR RECORDS PERTAINING TO PATIENTS [...] BE BASED ON THE PRIMARY CLINICAL RECORDS. [employer] [facility]. provides no warranty or guarantee of the accuracy or completeness of information in this document.
== END 2024-02-20 13:58 | disposition home or self-care (01) ==
LOC: MAMMO 13:57
PROVIDERS: PCP Family Medicine; Visit Provider Family Medicine
DX: Z12.31 Encounter for screening mammogram for malignant neoplasm of breast (principal); Z80.3 Family history of malignant neoplasm of breast; Z80.8 Family history of malignant neoplasm of other organs or systems
CPT/HCPCS: 77063; 77067

== ENCOUNTER 2024-04-23 08:16 | Outpatient (OUT) | payer OTHER, SELFPAY ==
--- OUTSIDE RECORDS SUMMARY | 2024-04-23 08:19 | XMS_ITS | CCD ---
Author Organization [facility] Care Team Providers Care Imaging Specialist Name Role Phone MARKER, DR KINGSTON Attending [...] Category Payer Private Health Insurance 1975 Unknown [id number] 2.16.84 [id number] 1975 Unknown [id number] 2.16. [id number] 1975 Unknown [id number] 2.16. [id number] 1959 Private Health Insurance [id number] 1959 Self-pay Unknown [id number] 2.16.84 [id number] Summary Purpose Family History No Family History Records FoundNo Family History Records Found Advance Directives No Advanced Directives Records FoundNo Advanced Directives Records Found Additional Source Comments INFORMATION SOURCE (unrecogn ized section and content) DATE CREATED AUTHOR 06/25/2021 [facility] DATE CREATED AUTHOR AUTHOR'S ORGANIZ ATION 02/09/2024 [facility] FOR RECORDS PERTAINING TO PATIENTS WHO ARE [...] BE BASED ON THE PRIMARY CLINICAL RECORDS. [employer] [facility]. provides no warranty or guarantee of the accuracy or completeness of information in this document.
--- NOTE | 2024-04-23 08:39 | P.CN_ITS ---
Consult Note: HPI Data of Consult Patient: known to practice within the last 3 years Requesting Physician: Milady Stevenson NP Primary Care Provider: Sukumar Hayes MD Consult Narrative Reason for consult: chronic low back pain with right sided radiculopathy Narrative: Arin smith pleasant 48 year old female presents for evaluation and man agement of chronic low back pain with right sided radiculopathy. Hx of lumbar fusion at L4-5 and lumbar discectomy. Patient recently evaluated by Dr Humphrey and patient would like to try injection therapy prior to additional surgical intervention. Previously found mild benefit to motrin, mobic, tramadol. engaged in HEP greater than 6 weeks without benefit. Recent lumbar xray and MRI below, consistent with stenosis and degenerative changes. Recent bilateral L5-S1 TFESI providing significant improvement in radicular pain, and right SIJ injection provided >80% improvement for 3 months, patient has noticed increased pain over the last week and nothing is improving her pain. Patient reporting pain 10/10, severely uncomfortable. PCP treating pt for UTI as well. cc:: CC: Milady Stevenson NP Review of Systems ROS Status of ROS 10 or more systems reviewed and unremark able except as noted in history and below Musculoskeletal Reports: back pain, extremity pain and joint pain PFSH PFS Medical History (Updated 04/23/24 @ 08:51 by Milady Stevenson NP) Low back pain ?M54.50 - Low back pain, unspecified (ICD-10) Surgical History History of lumbar fusion ?Z98.1 - Arthrodesis status (ICD-10) H/O lumbar discectomy ?Z98.890 - Other specified postprocedural states (ICD-10) Meds Home Medications and Allergies Home Medications ?Medication ?Instructions ?Recorded ?Confirmed ?Type meloxicam 15 mg tablet 15 mg PO DAILY 10/10/23 02/04/24 History Allergies Allergy/AdvReac Type Severity Reaction Status Date / Time No Known Drug Allergies Allergy Verified 02/04/24 10:16 Exam Constitutional Documenting provider has reviewed patient's vital signs: yes Common normals: no apparent distress, oriented x3, healthy appearing, alert and well nourished General appearance: cooperative HENMT Common normals: normocephalic, hearing grossly normal bilaterally and moist oral mucous membranes Head and scalp: normocephalic Eye Common normals: PERRL Pupil: PERRL Neck & C-Spine Common normals: full ROM General: normal visual inspection Chest Common normals: inspection of chest normal Respiratory Common normals: normal respiratory effort, no retractions and no use of accessory muscles Back & Pelvis Lumbar spine/lower back: normal to inspection, ROM limited, pain with ROM, paraspinal muscle tenderness and straight leg raise positive right Sacroiliac joints: SI joint(s) abnormal Other: decreased sensation right L5/S1 strength 4/5 in RLE 5/5 in LLE right SIJ positive ashlee(patricks), gaenslens, thigh thrust, compression test Extremity Common normals: normal to inspection and full ROM Neuro Common normals: oriented x3, CN's II-XII intact bilaterally, moves all extremities, no focal motor deficits, no sensory deficits noted and deep tendon reflexes 2+ bilaterally Sensorium/orientation: alert Gait (neuro): antalgic Motor exam: strength 5/5 throughout and no movement abnormalities noted Psych Common normals: mental status grossly normal, thought process normal, cooperative, affect normal, speech normal and activity/motor behavior normal Speech: normal speech Thought process: normal thought process Results Additional Findings Additional findings: If on a controlled substance or opioids, I have checked an OARRS report on this patient and there are no aberrancies noted in the prescribing history.??If on a controlled substance or opioid a drug screen was completed and reviewed within the last year, and if there has not been a drug screen completed we ordered one today to monitor higher risk, state monitored pain medication use. As part of providing excellent, safe, comprehensive care, the following was completed at our patient's visit: 1. A medication reconciliation and review to ensure accurate knowledge of current/active medications, including asking our patients to inform us about any vjie-hkd-[id number] medications or herbal remedies/nutritional supplements/alternative remedies. 2. A review to specifically ensure our patients have had annual screening for screening for depression, screening for tobacco use, and screening for unhealthy alcohol use. For concerning screenings had a discussion with the patient, provided patient education, and recommended follow-up with primary care provider when appropriate. If patient noted with a risk of falling, they received education on strength, gait, and balance training to prevent future risk of falling. Assessment and Plan Assessment and Plan (1) Lumbar radiculopathy: (2) Lumbar stenosis with neurogenic claudication: (3) Sacroiliitis: (4) S/P lumbar fusion: Plan with severe pain unresponsive to previous tramadol, aleve, tizanidine i recommend pt continue meloxicam 15mg daily, start baclofen 10mg TID PRN pain/spasms and start gabapentin 100mg capsules 3 a day as tolerated. risks vs benefits reviewed. continue care with PCP for UTI. will write for work excuse for the remainder of the week. patient would like a standing/adjustable height desk for work, will send to PT/OT for functional capacity exam to evaluate need. repeat bilateral L5-S1 TFESI under fluoroscopy, previous injection provided >50% improvement for 3 months. consider right SIJ injection at f/u. f/u 2 weeks after TARUN
== END 2024-04-23 08:17 | disposition home or self-care (01) ==
LOC: PM 08:16
PROVIDERS: PCP Family Medicine; Visit Provider Nurse Practitioner
DX: M54.16 Radiculopathy, lumbar region (principal); M48.062 Spinal stenosis, lumbar region with neurogenic claudication; M46.1 Sacroiliitis, not elsewhere classified; M43.26 Fusion of spine, lumbar region
CPT/HCPCS: G0463

== ENCOUNTER 2024-04-28 10:57 | Day surgery (SDC) | payer OTHER, SELFPAY ==
--- OUTSIDE RECORDS SUMMARY | 2024-04-28 11:02 | XMS_ITS | CCD ---
Author Organization [facility] Care Team Providers Care Asphalt Dauber Name Role Phone MARKER, DR KINGSTON Attending [...] Category Payer Private Health Insurance 1975 Unknown [id number] 2.16.84 [id number] 1975 Unknown [id number] 2.16. [id number] 1975 Unknown [id number] 2.16. [id number] 1959 Private Health Insurance [id number] 1959 Self-pay Unknown [id number] 2.16.84 [id number] Summary Purpose Family History No Family History Records FoundNo Family History Records Found Advance Directives No Advanced Directives Records FoundNo Advanced Directives Records Found Additional Source Comments INFORMATION SOURCE (unrecogn ized section and content) DATE CREATED AUTHOR 06/25/2021 [facility] DATE CREATED AUTHOR AUTHOR'S ORGANIZ ATION 02/09/2024 [facility] FOR RECORDS PERTAINING TO PATIENTS WHO [...] BE BASED ON THE PRIMARY CLINICAL RECORDS. [facility]. provides no warranty or guarantee of the accuracy or completeness of information in this document.
[2024-04-28 11:37] VITALS: BP 157/97; PULSE 95; TEMP 36.3; O2SAT 99
[2024-04-28 12:24] VITALS: BP 157/85; BP 162/91; PULSE 92; PULSE 98; O2SAT 98; O2SAT 99
[2024-04-28] MEDS: BUPIVACAINE HCL 0.25% PF 25 MG/10 ML VIAL INJ (12:25)
[2024-04-28] MEDS: 0.9 % SODIUM CHLORIDE 10 ML SYRINGE - SALINE FLUSH INJ (12:25)
[2024-04-28] MEDS: IOHEXOL 240 MG/ML - 10 ML VIAL INJ (12:26)
[2024-04-28] MEDS: LIDOCAINE HCL 2% 400 MG/20 ML MDV 5 ML INJ (12:26)
[2024-04-28] MEDS: TRIAMCINOLONE ACETONIDE 40 MG/ML VIAL 80 MG INJ (12:27)
--- NOTE | 2024-04-28 12:28 | W.PM.PROCNOT ---
Date of procedure: 04/28/24 Pre-op diagnosis: Pain due to lumbar stenosis with neurogenic claudication Post-op diagnosis: same as pre-op Procedure: Procedure: Bilateral L5-S1 transforaminal epidural steroid injection Medications: Bupivacaine 0.25% 2cc, lidocaine 2% 1cc, kenalog 80mg The patient was seen and examined in the preoperative holding area.? Informed consent was obtained and placed on the chart.? Patient was brought to the medical procedure unit and placed in the prone position where a timeout was completed verifying the correct patient, procedure site, position, and planned special equipment using sterile aseptic technique.? Under direct fluoroscopic visualization a 25-gauge Quincke tipped spinal needle was advanced at level left L5-S1 to the designated neural foramen where contrast dye was injected to show adequate spread.? There was no evidence of vascular or adverse uptake.? Epidural spread was appreciated.? The above-mentioned injectate was then placed in a 1.5 mL aliquot preceded by negative aspiration.? The needle was removed. The same procedure, at the same level, was completed on the opposite side. ? Patient was taken to the postprocedural recovery area and monitored for an appropriate length of time before found suitable for discharge in the accompaniment of a responsible adult. Anesthesia: Local Surgeon: Marcos Huffman Pathology: none sent Condition: stable Disposition: no change
== END 2024-04-28 12:35 | disposition home or self-care (01) ==
LOC: SURGOUT 10:57
PROVIDERS: PCP Family Medicine; Visit Provider Anesthesiology
DX: M48.062 Spinal stenosis, lumbar region with neurogenic claudication (principal)
CPT/HCPCS: 64483; J0665; J3301; Q9966

== ENCOUNTER 2024-05-01 13:57 | Outpatient (RCR) | payer OTHER, SELFPAY | END 2024-05-02 16:47 | disposition home or self-care (01) | LOC: PT 13:57 | PROVIDERS: PCP Family Medicine; Visit Provider Nurse Practitioner | DX: M48.062 Spinal stenosis, lumbar region with neurogenic claudication (principal) | CPT/HCPCS: 97110; 97140; 97162 ==

== ENCOUNTER 2024-05-08 13:42 | Outpatient (OUT) | payer OTHER, SELFPAY ==
--- OUTSIDE RECORDS SUMMARY | 2024-05-08 13:58 | XMS_ITS | CCD ---
Author Organization [facility] Care Team Providers Care Car Examiner Name Role Phone MARKER, DR KINGSTON Attending [...] Category Payer Private Health Insurance 1975 Unknown [id number] 2.16.84 [id number] 1975 Unknown [id number] 2.16. [id number] 1975 Unknown [id number] 2.16. [id number] 1959 Private Health Insurance [id number] 1959 Self-pay Unknown [id number] 2.16.84 [id number] Summary Purpose Family History No Family History Records FoundNo Family History Records Found Advance Directives No Advanced Directives Records FoundNo Advanced Directives Records Found Additional Source Comments INFORMATION SOURCE (unrecogn ized section and content) DATE CREATED AUTHOR 06/25/2021 [facility] DATE CREATED AUTHOR AUTHOR'S ORGANIZ ATION 05/03/2024 [facility] FOR RECORDS PERTAINING TO PATIENTS WHO [...] BE BASED ON THE PRIMARY CLINICAL RECORDS. [facility]. provides no warranty or guarantee of the accuracy or completeness of information in this document.
--- NOTE | 2024-05-08 14:10 | P.CN_ITS ---
Consult Note: HPI Data of Consult Patient: known to practice within the last 3 years Requesting Physician: Milady Stevenson NP Primary Care Provider: Sukumar Hayes MD Consult Narrative Reason for consult: chronic low back pain with right sided radiculopathy Narrative: Arin smith pleasant 48 year old female presents for evaluation and man agement of chronic low back pain with right sided radiculopathy. Hx of lumbar fusion at L4-5 and lumbar discectomy. Patient recently evaluated by Dr Humphrey and patient would like to try injection therapy prior to additional surgical intervention. Previously found mild benefit to motrin, mobic, tramadol. engaged in HEP greater than 6 weeks without benefit. Recent lumbar xray and MRI below, consistent with stenosis and degenerative changes. Recently underwent repeat bilateral L5/S1 TFESI with 50% improvement in pain. currently utilizing baclofen 10mg BID PRN, diclofenac 75mg BID and gabapentin 200mg TID with benefit. notices mild drowsiness. cc:: CC: Milady Stevenson NP Review of Systems ROS Status of ROS 10 or more systems reviewed and unremark able except as noted in history and below Musculoskeletal Reports: back pain, extremity pain and joint pain PFSH PFS Medical History (Updated 04/23/24 @ 08:51 by Milady Stevenson NP) Low back pain ?M54.50 - Low back pain, unspecified (ICD-10) Surgical History History of lumbar fusion ?Z98.1 - Arthrodesis status (ICD-10) H/O lumbar discectomy ?Z98.890 - Other specified postprocedural states (ICD-10) Meds Home Medications and Allergies Home Medications ?Medication ?Instructions ?Recorded ?Confirmed ?Type baclofen 10 mg tablet 10 mg PO TID 04/23/24 04/28/24 History gabapentin 100 mg capsule 100 mg PO TID 04/23/24 04/28/24 History diclofenac sodium 75 mg 75 mg PO BID 04/25/24 04/28/24 History tablet,delayed release Allergies Allergy/AdvReac Type Severity Reaction Status Date / Time No Known Drug Allergies Allergy Verified 04/28/24 11:45 Exam Constitutional Documenting provider has reviewed patient's vital signs: yes Common normals: no apparent distress, oriented x3, healthy appearing, alert and well nourished General appearance: cooperative HENWY Common normals: normocephalic, hearing grossly normal bilaterally and moist oral mucous membranes Head and scalp: normocephalic Eye Common normals: PERRL Pupil: PERRL Neck & C-Spine Common normals: full ROM General: normal visual inspection Chest Common normals: inspection of chest normal Respiratory Common normals: normal respiratory effort, no retractions and no use of accessory muscles Back & Pelvis Lumbar spine/lower back: normal to inspection, ROM limited, pain with ROM and straight leg raise negative bilaterally Sacroiliac joints: SI joint(s) abnormal Other: decreased sensation right L5/S1 strength 4/5 in RLE 5/5 in LLE right SIJ positive ashlee(patricks), gaenslens, thigh thrust, compression test Extremity Common normals: normal to inspection and full ROM Neuro Common normals: oriented x3, CN's II-XII intact bilaterally, moves all extremities, no focal motor deficits, no sensory deficits noted and deep tendon reflexes 2+ bilaterally Sensorium/orientation: alert Gait (neuro): antalgic Motor exam: strength 5/5 throughout and no movement abnormalities noted Psych Common normals: mental status grossly normal, thought process normal, cooperative, affect normal, speech normal and activity/motor behavior normal Speech: normal speech Thought process: normal thought process Results Additional Findings Additional findings: If on a controlled substance or opioids, I have checked an OARRS report on this patient and there are no aberrancies noted in the prescribing history.??If on a controlled substance or opioid a drug screen was completed and reviewed within the last year, and if there has not been a drug screen completed we ordered one today to monitor higher risk, state monitored pain medication use. As part of providing excellent, safe, comprehensive care, the following was completed at our patient's visit: 1. A medication reconciliation and review to ensure accurate knowledge of current/active medications, including asking our patients to inform us about any vikb-zsv-zdgnnys medications or herbal remedies/nutritional supplements/alternative remedies. 2. A review to specifically ensure our patients have had annual screening for screening for depression, screening for tobacco use, and screening for unhealthy alcohol use. For concerning screenings had a discussion with the patient, provided patient education, and recommended follow-up with primary care provider when appropriate. If patient noted with a risk of falling, they received education on strength, gait, and balance training to prevent future risk of falling. Assessment and Plan Assessment and Plan (1) Lumbar radiculopathy: (2) Lumbar stenosis with neurogenic claudication: (3) Sacroiliitis: (4) S/P lumbar fusion: Plan proceed with right SIJ injection under fluoroscopy, previous injection provided >50% improvement for at least 3 months but symptoms have returned continue current medications f/u with Dr Humphrey to discuss surgical options, consider spinal cord stimulator trial if non surgical upcoming PT f/u after injection
== END 2024-05-08 13:43 | disposition home or self-care (01) ==
LOC: PM 13:43
PROVIDERS: PCP Family Medicine; Visit Provider Nurse Practitioner
DX: M54.16 Radiculopathy, lumbar region (principal); M48.062 Spinal stenosis, lumbar region with neurogenic claudication; M46.1 Sacroiliitis, not elsewhere classified; M43.26 Fusion of spine, lumbar region
CPT/HCPCS: G0463

== ENCOUNTER 2024-05-19 07:38 | Day surgery (SDC) | payer OTHER, SELFPAY ==
[2024-05-19 07:57] VITALS: BP 123/83; PULSE 81; TEMP 36.4; O2SAT 100
[2024-05-19 08:36] VITALS: BP 115/68; BP 115/71; PULSE 72; PULSE 74; O2SAT 92; O2SAT 96
[2024-05-19] MEDS: TRIAMCINOLONE ACETONIDE 40 MG/ML VIAL INJ (08:38)
[2024-05-19] MEDS: LIDOCAINE HCL 2% 400 MG/20 ML MDV INJ (08:38)
[2024-05-19] MEDS: BUPIVACAINE HCL 0.25% PF 25 MG/10 ML VIAL 2 ML INJ (08:38)
[2024-05-19] MEDS: IOHEXOL 240 MG/ML - 10 ML VIAL 24 MG INJ (08:38)
--- NOTE | 2024-05-19 08:39 | W.PM.PROCNOT ---
Date of procedure: 05/19/24 Pre-op diagnosis: Pain due to right sacroiliitis Post-op diagnosis: same as pre-op Procedure: Procedure: Right sacroiliac joint injection Medications: Bupivacaine 0.25% 3cc, kenalog 40mg After informed consent was obtained, the patient was brought to the medical procedure unit and placed in the prone position, when a timeout was completed verifying correct patient, procedure, site, positioning, implant, and/or special equipment.? The skin overlying the area was prepped and draped in standard sterile fashion using alcohol.? A 25-gauge needle was inserted towards the right sacroiliac joint under direct fluoroscopic imaging.? Needle tip was advanced until the joint was encountered.? We instilled a total of 2 mL of solution.? Postoperatively needles were removed.? The patient tolerated the procedure well without complication.? The patient reported reduction in pain symptoms postoperatively. Anesthesia: Local Surgeon: Marcos Huffman Pathology: none sent Condition: stable Disposition: no change
== END 2024-05-19 08:43 | disposition home or self-care (01) ==
PROVIDERS: PCP Family Medicine; Visit Provider Anesthesiology
DX: M46.1 Sacroiliitis, not elsewhere classified (principal)
CPT/HCPCS: 27096; J0665; J3301; Q9966

== ENCOUNTER 2024-05-28 13:29 | Outpatient (OUT) | payer OTHER, SELFPAY ==
--- OUTSIDE RECORDS SUMMARY | 2024-05-28 13:50 | XMS_ITS | CCD ---
Author Organization [facility] Care Team Providers Care Memory Care Director Name Role Phone MARKER, DR KINGSTON [...] Unavailable Nathanael ROCK, Marcos Sanchez Attending Unavailable Gikathleen ROCK, Marcos Sanchez Attending Unavailable Nathanael ROCK, [...] Date Encounter Type Care Provider Facility Start: 05-19-2024 End: 05-19-2024 ambulatory Marcos Huffman MD [facility] Start: 04-28-2024 End: 04-28-2024 ambulatory Marcos Huffman MD [facility]: [facility] Start: 02-04-2024 End: 02-04-2024 ambulatory Marcos Huffman MD [facility] Start: 12-03-2023 End: 12-03-2023 ambulatory Marcos Huffman MD [facility]: [facility] Start: 06-22-2021 End: 06-23-[address] THEE MILLER Facility: Start: 10-04-2020 End: 10-04-[address] ANDREIA OGLESBY Facility:[facility] Payers Date Payer Category Payer Private Health Insurance 1975 Unknown [id number] 2.16.84 [id number] 1975 Unknown [id number] 2.16. [id number] 1975 Unknown [id number] 2.16. [id number] 1975 Unknown [id number] 2.16. [id number] 1975 Unknown [id number] 2.16. [id number] 1959 Private Health Insurance [id number] 1959 Self-pay Unknown [id number] 2.16.84 [id number] Summary Purpose Family History No Family History Records FoundNo Family History Records Found Advance Directives No Advanced Directives Records FoundNo Advanced Directives Records Found Additional Source Comments INFORMATION SOURCE (unrecogn ized section and content) DATE CREATED AUTHOR 06/25/2021 [facility] DATE CREATED AUTHOR AUTHOR'S MARIAM CARVAJAL 05/24/2024 [facility] FOR RECORDS PERTAINING TO PATIENTS [...] BE BASED ON THE PRIMARY CLINICAL RECORDS. [employer] provides no warranty or guarantee of the accuracy or completeness of information in this document.
--- NOTE | 2024-05-28 14:04 | P.CN_ITS ---
Consult Note: HPI Data of Consult Patient: known to practice within the last 3 years Requesting Physician: Milady Stevenson NP Primary Care Provider: Sukumar Hayes MD Consult Narrative Reason for consult: chronic low back pain with right sided radiculopathy Narrative: Arin Montenegro a pleasant 49 year old female presents for evaluation and man agement of chronic low back pain with right sided radiculopathy. Hx of lumbar fusion at L4-5 and lumbar discectomy. Previously found mild benefit to motrin, mobic, tramadol. engaged in HEP greater than 6 weeks without benefit. Recent lumbar xray and MRI below, consistent with stenosis and degenerative changes. Recently underwent repeat bilateral L5/S1 TFESI with 50% improvement in pain as well as right SIJ injection with >90% improvement. currently utilizing baclofen 10mg PRN, diclofenac 75mg BID PRN, and gabapentin 100mg HS. Pt interested in weaning off of medications. Upcoming L5-S1 decompression and fusion 07/14/[address] Humphrey. cc:: CC: Milady Stevenson NP Review of Systems ROS Status of ROS 10 or more systems reviewed and unremark able except as noted in history and below [facility] Medical History (Updated 04/23/24 @ 08:51 by Milady Stevenson NP) Low back pain ?M54.50 - Low back pain, unspecified (ICD-10) Surgical History History of lumbar fusion ?Z98.1 - Arthrodesis status (ICD-10) H/O lumbar discectomy ?Z98.890 - Other specified postprocedural states (ICD-10) Meds Home Medications and Allergies Home Medications ?Medication ?Instructions ?Recorded ?Confirmed ?Type baclofen 10 mg tablet 10 mg PO TID 04/23/24 05/19/24 History gabapentin 100 mg capsule 100 mg PO TID 04/23/24 05/19/24 History diclofenac sodium 75 mg 75 mg PO BID 04/25/24 05/19/24 History tablet,delayed release Allergies Allergy/AdvReac Type Severity Reaction Status Date / Time No Known Drug Allergies Allergy Verified 05/19/24 08:06 Exam Constitutional Documenting provider has reviewed patient's vital signs: yes Common normals: no apparent distress, oriented x3, healthy appearing, alert and well nourished General appearance: cooperative HENMT Common normals: normocephalic, hearing grossly normal bilaterally and moist oral mucous membranes Head and scalp: normocephalic Eye Common normals: PERRL Pupil: PERRL Neck & C-Spine Common normals: full ROM General: normal visual inspection Chest Common normals: inspection of chest normal Respiratory Common normals: normal respiratory effort, no retractions and no use of accessory muscles Back & Pelvis Lumbar spine/lower back: normal to inspection, ROM limited, pain with ROM and straight leg raise negative bilaterally Sacroiliac joints: SI joints normal Other: right SIJ negative ashlee(patricks), gaenslens, thigh thrust, compression test Extremity Common normals: normal to inspection and full ROM Neuro Common normals: oriented x3, CN's II-XII intact bilaterally, moves all extremities, no focal motor deficits, no sensory deficits noted and deep tendon reflexes 2+ bilaterally Sensorium/orientation: alert Gait (neuro): antalgic Motor exam: strength 5/5 throughout and no movement abnormalities noted Psych Common normals: mental status grossly normal, thought process normal, cooperative, affect normal, speech normal and activity/motor behavior normal Speech: normal speech Thought process: normal thought process Results Additional Findings Additional findings: If on a controlled substance or opioids, I have checked an OARRS report on this patient and there are no aberrancies noted in the prescribing history.??If on a controlled substance or opioid a drug screen was completed and reviewed within the last year, and if there has not been a drug screen completed we ordered one today to monitor higher risk, state monitored pain medication use. As part of providing excellent, safe, comprehensive care, the following was completed at our patient's visit: 1. A medication reconciliation and review to ensure accurate knowledge of current/active medications, including asking our patients to inform us about any dxuw-cqw-vfdcaod medications or herbal remedies/nutritional supplements/alternative remedies. 2. A review to specifically ensure our patients have had annual screening for screening for depression, screening for tobacco use, and screening for unhealthy alcohol use. For concerning screenings had a discussion with the patient, provided patient education, and recommended follow-up with primary care provider when appropriate. If patient noted with a risk of falling, they received education on strength, gait, and balance training to prevent future risk of falling. Assessment and Plan Assessment and Plan (1) Sacroiliitis: (2) S/P lumbar fusion: (3) Lumbar stenosis with neurogenic claudication: (4) Lumbar radiculopathy: Plan wean off gabapentin as tolerated can continue baclofen 10mg daily PRN pain/spasms and diclofenac 75mg BID PRN pa in continue f/u with Dr Humphrey f/u PRN
== END 2024-05-28 13:30 | disposition home or self-care (01) ==
LOC: PM 13:30
PROVIDERS: PCP Family Medicine; Visit Provider Nurse Practitioner
DX: M46.1 Sacroiliitis, not elsewhere classified (principal); Z98.1 Arthrodesis status; M48.062 Spinal stenosis, lumbar region with neurogenic claudication; M54.16 Radiculopathy, lumbar region
CPT/HCPCS: G0463